=== PATIENT | female | born 1950 | race Hispanic/Latino ===

== ENCOUNTER 2017-06-07 06:23 | Day surgery (SDC) | payer MEDICARE, BC ==
[2017-05-30 08:19] VITALS: BMI 26.6
[2017-06-07] MEDS ORDERED: Propofol 10 mg/ml Inj (20 ML) ONE (08:14)
[2017-06-07] MEDS ORDERED: Lactated Ringer's 1,000 ML IV SCH (08:45)
[2017-06-07 09:39] VITALS: O2SAT 99
[2017-06-07 09:52] VITALS: BP 123/69; PULSE 78; RESP 18; TEMP 98.2
== END 2017-06-07 10:25 | disposition home or self-care (01) ==
LOC: ENDO 06:23
PROVIDERS: ATTEND Specialist
DX: Z12.11 Encounter for screening for malignant neoplasm of colon (principal); K62.1 Rectal polyp; K57.30 Diverticulosis of large intestine without perforation or abscess without bleeding; K64.8 Other hemorrhoids; E78.5 Hyperlipidemia, unspecified; I10 Essential (primary) hypertension; M19.90 Unspecified osteoarthritis, unspecified site; M81.0 Age-related osteoporosis without current pathological fracture; Z96.651 Presence of right artificial knee joint
CPT/HCPCS: 45380; 88305; J2001; J2405; J2704; J7040; J7120